=== PATIENT | female | born 1955 | race Caucasian/White ===

== ENCOUNTER → 2017-09-22 10:43 | Outpatient (CLI) | payer BC ==
[~2017-09-22 10:43] MED LIST: AMBIEN5 MG PO; BACTRIM DS TABL1 TAB PO; BAYER CHEWABLE81 MG PO; BUSPAR 15 MG TA15 MG PO; CYCLOBENZAPRINE5 MG PO; DOXYCYCLINE HY100 M2 PO; EFFEXOR75 MG PO; MELATONIN5 MG PO; MOBIC7.5 MG PO; NEURONTIN 300300 MG PO; OMEPRAZOLE40 MG PO; REGLAN10 MG PO; RESTORIL15 MG PO; REXULTI1 MG PO; TUMERIC; VISTARIL25 MG PO
[2017-09-22 11:17] LABS: BASOPHILS 0.7 % (0-2); EOSINOPHILS 5.7 % (0-7); HEMATOCRIT 40.6 % (36.0-48.0); HEMOGLOBIN 13.6 g/dL (12-16); IMMATURE GRANULOCYTES 0.2 % (0-5); LYMPHOCYTES 43.9 % (15-50); MCHC 33.5 g/dL (31.0-37.0); MCV 89.4 fL (80.0-100.0); MONOCYTES 6.9 % (2-11); NEUTROPHILS 42.6 % (40-80); PLATELET COUNT 170 10x3/uL (130-400); RBC 4.54 10x6/uL (4.00-5.40); RDW 13.4 % (11.5-14.5); WBC 6.1 10x3/uL (4.8-10.8)
[2017-09-22 11:38] LABS: ALBUMIN 3.9 g/dL (3.4-5.0); ANION GAP 13.5 mmol/L (8-16); BILIRUBIN - TOTAL 0.53 mg/dL (0.2-1.3); CALCIUM 9.7 mg/dL (8.5-10.1); CARBON DIOXIDE 29.8 mmol/L (21.0-32.0); CREATININE - SERUM 0.9 mg/dL (0.6-1.3); POTASSIUM - SERUM 4.3 mmol/L (3.5-5.1); PROTEIN - SERUM 7.2 g/dL (6.4-8.2)
== END | disposition home or self-care (01) ==
LOC: D.LAB 10:43 → D.NM 11:30
PROVIDERS: Internal Medicine Gastroenterology
DX: R10.9 Unspecified abdominal pain (principal); R11.0 Nausea

== ENCOUNTER 2017-10-30 19:32 | Emergency (ER) | payer BC ==
[~2017-10-30] VITALS: Ht 152.4 cm; Wt 95.3 kg
[2017-10-30 19:41] VITALS: Ht 152.4 cm; Wt 95.3 kg
[2017-10-30] MEDS ORDERED: MOBIC7.5 MG PO (19:44)
[2017-10-30] MEDS ORDERED: RESTORIL15 MG PO (19:44)
[2017-10-30] MEDS ORDERED: OMEPRAZOLE40 MG PO (19:45)
[2017-10-30] MEDS ORDERED: BAYER CHEWABLE81 MG PO (19:45)
[2017-10-30] MEDS ORDERED: REXULTI1 MG PO (19:45)
[2017-10-30] MEDS ORDERED: BACTRIM DS TABL1 TAB PO (19:46)
[2017-10-30] MEDS ORDERED: NEURONTIN 300300 MG PO (19:46)
[2017-10-30] MEDS ORDERED: CYCLOBENZAPRINE5 MG PO (19:46)
[2017-10-30] MEDS ORDERED: DOXYCYCLINE HY100 M2 PO (19:47)
[2017-10-30] MEDS ORDERED: AMBIEN5 MG PO (19:47)
[2017-10-30] MEDS ORDERED: EFFEXOR75 MG PO (19:48)
[2017-10-30] MEDS ORDERED: VISTARIL25 MG PO (19:48)
[2017-10-30] MEDS ORDERED: TUMERIC (19:49)
[2017-10-30] MEDS ORDERED: MELATONIN5 MG PO (19:49)
[2017-10-30] MEDS ORDERED: BUSPAR 15 MG TA15 MG PO (19:49)
[2017-10-30 20:06] LABS: BASOPHILS 0.2 % (0-2); EOSINOPHILS 1.2 % (0-7); HEMATOCRIT 49.3 % (36.0-48.0); IMMATURE GRANULOCYTES 0.3 % (0-5); LYMPHOCYTES 24.5 % (15-50); MCH 30.8 pg (26.0-34.0); MCHC 34.5 g/dL (31.0-37.0); MCV 89.3 fL (80.0-100.0); MEAN PLATELET VOLUME 10.2 fL (7.4-10.4); MONOCYTES 8.3 % (2-11); NEUTROPHILS 65.5 % (40-80); PLATELET COUNT 246 10x3/uL (130-400); RBC 5.52 10x6/uL (4.00-5.40); WBC 19.7 10x3/uL (4.8-10.8)
[2017-10-30 20:21] LABS: ALBUMIN 4.4 g/dL (3.4-5.0); ANION GAP 17.6 mmol/L (8-16); BILIRUBIN - TOTAL 0.81 mg/dL (0.2-1.3); CARBON DIOXIDE 24.9 mmol/L (21.0-32.0); CREATININE - SERUM 1.2 mg/dL (0.6-1.3); POTASSIUM - SERUM 3.5 mmol/L (3.5-5.1); PROTEIN - SERUM 8.5 g/dL (6.4-8.2)
[2017-10-30 21:24] LABS: APPEARANCE CLEAR (CLEAR); BILIRUBIN NEGATIVE (NEGATIVE); COLOR DK YELLOW (YELLOW); EPITHELIAL CELLS 0-5 /hpf (0-5); GLUCOSE NEGATIVE (NEGATIVE); KETONE NEGATIVE (NEGATIVE); NITRITE NEGATIVE (NEGATIVE); PROTEIN 1+ mg/dL (NEGATIVE); RED CELLS - URINE 0-5 /hpf (0-5); UROBILINOGEN NORMAL (NORMAL); WHITE CELLS - URINE 0-5 /hpf (0-5)
[2017-10-30 21:25] LABS: AMORPHOUS SEDIMENT >1+ /lpf (NONE SEEN); BACTERIA FEW /hpf (NONE SEEN); MUCUS <1+ /lpf (NONE SEEN)
[2017-10-30] MEDS ORDERED: REGLAN10 MG PO (22:20)
[2017-10-30 22:55] VITALS: BP 129/73
== END 2017-10-30 22:55 | disposition home or self-care (01) ==
LOC: D.ER 19:32
PROVIDERS: Emergency Medicine
DX: R10.9 Unspecified abdominal pain (principal); R19.7 Diarrhea, unspecified; E11.65 Type 2 diabetes mellitus with hyperglycemia; R11.10 Vomiting, unspecified